=== PATIENT | male | born 2000 | race African-American/Black ===

== ENCOUNTER 2024-05-20 12:30 | Emergency (ER) | payer BC ==
[2024-05-20 12:56] LABS: BASOPHILS ABSOLUTE AUTO 0.04 K/uL (0.00-0.20); BASOPHILS PERCENT AUTO 0.6 % (0.0-1.0); EOSINOPHILS PERCENT AUTO 12.6 % (0.0-6.0); HEMATOCRIT 44.2 % (42.0-52.0); HEMOGLOBIN 14.4 g/dL (14.0-18.0); IMMATURE GRAN ABSOLUTE AUTO 0.01 K/uL (0.00-0.05); IMMATURE GRAN PERCENT AUTO 0.1 % (0.0-0.4); LYMPHOCYTES ABSOLUTE AUTO 2.85 K/uL (1.00-4.80); MEAN CORPUSCULAR HEMOGLOBIN 27.7 pg (28.0-32.0); MEAN CORPUSCULAR HGB CONC 32.6 g/dL (32.0-36.0); MEAN CORPUSCULAR VOLUME 85.2 fL (83.0-99.0); MEAN PLATELET VOLUME 9.5 fL (9.4-12.4); MONOCYTES ABSOLUTE AUTO 0.49 K/uL (0.00-0.80); MONOCYTES PERCENT AUTO 6.9 % (0.0-8.0); NEUTROPHILS ABSOLUTE AUTO 2.84 K/uL (1.80-7.70); NEUTROPHILS PERCENT AUTO 39.8 % (41.0-71.0); PLATELET COUNT,PLT 231 K/uL (150-400); RED BLOOD CELL COUNT 5.19 M/uL (4.52-5.90); WHITE BLOOD CELL COUNT,WBC 7.13 K/uL (3.9-11.3)
[2024-05-20 13:24] LABS: A/G RATIO 0.9 (0.9-1.6); ALBUMIN 3.5 g/dL (3.4-5.0); BILIRUBIN TOTAL 0.4 mg/dL (0.2-1.0); CALCIUM 8.8 mg/dL (8.5-10.1); CARBON DIOXIDE,CO2 28.6 mmol/L (21.0-32.0); CREATININE 1.2 mg/dL (0.8-1.3); EST CRCL DRUG DOSING (CG) 81.22 mL/min; PROTEIN TOTAL,TP 7.5 g/dL (6.4-8.2)
[2024-05-20 14:14] LABS: INR 1.29 (0.86-1.11)
[2024-05-20] MEDS: Acetaminophen 500 MG Tab PO ONE (14:32)
[2024-05-20] MEDS: Dexamethasone 4 MG Tab PO ONE (14:33)
== END 2024-05-20 14:58 | disposition home or self-care (01) ==
LOC: MW.ED 12:30
DX: G89.29 Other chronic pain (principal); R07.9 Chest pain, unspecified; R04.2 Hemoptysis; R79.1 Abnormal coagulation profile; Z86.59 Personal history of other mental and behavioral disorders
CPT/HCPCS: 36415; 71046; 80053; 83690; 83880; 84484; 85025; 85610; 93005; 99285; A9270; J8540

== ENCOUNTER 2024-05-24 06:24 | Emergency (ER) | payer BC ==
[2024-05-24] MEDS ORDERED: Sodium Chloride 0.9% 10 ML Syringe FLUSH PRN (06:41)
[2024-05-24] MEDS ORDERED: Sodium Chloride 0.9% 2.5 ML Syringe FLUSH PRN (06:41)
[2024-05-24 07:30] LABS: BASOPHILS ABSOLUTE AUTO 0.04 K/uL (0.00-0.20); BASOPHILS PERCENT AUTO 0.6 % (0.0-1.0); EOSINOPHILS ABSOLUTE AUTO 1.13 K/uL (0.00-0.45); EOSINOPHILS PERCENT AUTO 15.8 % (0.0-6.0); HEMATOCRIT 42.4 % (42.0-52.0); IMMATURE GRAN ABSOLUTE AUTO 0.02 K/uL (0.00-0.05); IMMATURE GRAN PERCENT AUTO 0.3 % (0.0-0.4); LYMPHOCYTES ABSOLUTE AUTO 3.36 K/uL (1.00-4.80); LYMPHOCYTES PERCENT AUTO 47.1 % (24.0-44.0); MEAN CORPUSCULAR HEMOGLOBIN 27.7 pg (28.0-32.0); MEAN PLATELET VOLUME 9.4 fL (9.4-12.4); MONOCYTES ABSOLUTE AUTO 0.43 K/uL (0.00-0.80); NEUTROPHILS ABSOLUTE AUTO 2.15 K/uL (1.80-7.70); NEUTROPHILS PERCENT AUTO 30.2 % (41.0-71.0); PLATELET COUNT,PLT 234 K/uL (150-400); RED BLOOD CELL COUNT 5.05 M/uL (4.52-5.90); WHITE BLOOD CELL COUNT,WBC 7.13 K/uL (3.9-11.3)
[2024-05-24 07:53] LABS: INR 1.21 (0.86-1.11)
[2024-05-24 08:00] LABS: A/G RATIO 0.9 (0.9-1.6); ALBUMIN 3.4 g/dL (3.4-5.0); BILIRUBIN TOTAL 0.3 mg/dL (0.2-1.0); CALCIUM 8.5 mg/dL (8.5-10.1); CARBON DIOXIDE,CO2 26.2 mmol/L (21.0-32.0); CREATININE 1.1 mg/dL (0.8-1.3); EST CRCL DRUG DOSING (CG) 71.56 mL/min; PROTEIN TOTAL,TP 7.3 g/dL (6.4-8.2)
[2024-05-24] MEDS: Ibuprofen 600 MG Tab PO ONE (08:53)
== END 2024-05-24 08:56 | disposition home or self-care (01) ==
LOC: MW.ED 06:24
DX: R07.89 Other chest pain (principal)
CPT/HCPCS: 36415; 71045; 80053; 83690; 84484; 85025; 85379; 85610; 93005; 99285; A9270